=== PATIENT | male | born 1995 | race Caucasian/White ===

== ENCOUNTER 2021-07-09 11:10 | Emergency (ER) | payer BC, SELFPAY ==
[2021-07-09 11:17] VITALS: BP 142/74; PULSE 75; RESP 18; TEMP 36.5; O2SAT 100
--- NOTE | 2021-07-09 11:17 | ED.NAVMDI ---
HPI - Nausea/Vomiting/Diarrhea General Chief complaint: Nausea/Vomiting/Diarrhea Stated complaint: nausea Time Seen by Provider: 07/09/21 11:17 Source: patient, family and RN notes reviewed History of Present Illness HPI Narrative: Patient is a 25-year-old male who presents the urgent care with his spouse with complaints of nausea and vomiting. Patient states that 2 nights ago he started to have epigastric pain. Patient does state that he has a history of heartburn as well as esophageal spasms. Patient had a primary care visit yesterday and also found that he has some arrhythmia. Patient states that he is not having any chest pain and his PCP was not concerned however did refer him to a gis developer. Patient's PCP told him that if his epigastric symptoms do not improve that he will refer him to a dictating machine transcriber. Patient states that symptoms started more severe at 3 AM last night after eating tacos for dinner. Patient drinks a lot of carbonated water but states he did cut out soda. Patient has been taking Pepto without any improvements. Denies of any fevers, diarrhea or lower abdominal pains. No other acute complaints. No acute distress noted. Patient aware of the plan of care. Some parts of this dictation were generated by voice recognition software and may contain typographical and/or grammatical inaccuracies. Related Data Allergies Allergy/AdvReac Type Severity Reaction Status Date / Time amoxicillin Allergy Hives Verified 07/09/21 11:33 Review of Systems Review of Systems: CONSTITUTIONAL: Denies fever, chills, or sweats. EYES: Denies visual changes, redness, or discharge. ENT: Denies rhinorrhea, congestion, sore throat, or otalgia. CARDIOVASCULAR: Denies chest pain, palpitations, or edema. RESPIRATORY: Denies cough or dyspnea. GASTROINTESTINAL: Reports of epigastric pain, nausea and vomiting GENITOURINARY: Denies dysuria or hematuria. SKIN: Denies rash or itching. MUSCULOSKELETAL: Denies back pain, joint pain, or myalgia. NEUROLOGIC: Denies headache, numbness, or weakness. All other systems reviewed are negative, except as documented in HPI. PMFSH Comments At the time of my signature, I reviewed and agree with the nursing past medical, surgical, social, and family history. There is no relevant family history pertinent to the patient complaint. Exam Narrative: GENERAL: This is a well-nourished, well-developed patient, in no apparent distress. HEAD: normocephalic, atraumatic. EYES: PERRL. Sclera clear/white. Vision is grossly intact. EARS: External ears normal NOSE: External nose normal with no obvious nasal discharge, nares without redness, no rhinorrhea. THROAT: Mucous membranes moist NECK: Neck supple CARDIOVASCULAR: Regular rate and rhythm without murmurs, gallops, or rubs. RESPIRATORY: Clear to auscultation. Breath sounds equal bilaterally. No wheezes, rales, or rhonchi. GASTROINTESTINAL: Abdomen soft, epigastric tenderness, nondistended. Bowel sounds are active. No guarding. SKIN: warm, intact with no suspicious lesions or rash, good texture and turgor. NEURO: awake, alert, and oriented to person, place and time. There were no obvious focal neurologic abnormalities. EXTREMITIES: No clubbing, cyanosis, or edema. Course Course Level of Care: Express Care Visit Vital Signs Vital signs: Vital Signs Temperature 97.7 F 07/09/21 11:17 Pulse Rate 75 07/09/21 11:17 Respiratory Rate 18 07/09/21 11:17 Blood Pressure 142/74 H 07/09/21 11:17 Pulse Oximetry 100 07/09/21 11:17 Temperature 97.7 F 07/09/21 11:17 Pulse Rate 75 07/09/21 11:17 Respiratory Rate 18 07/09/21 11:17 Blood Pressure 142/74 H 07/09/21 11:17 Pulse Oximetry 100 07/09/21 11:17 Reviewed-patient is informed that they may have pre-hypertension or hypertension based on a blood pressure reading in the department. I recommend the patient call the primary care provider listed on their discharge instructions or a physician
[2021-07-09] MEDS: BELLADONNA ALK/PHENOB ELIX 10 ML, MAG HYDROX/ALUMINUM HYD/SIMETH 30 ML, LIDOCAINE HCL 2... PO (11:34)
== END 2021-07-09 11:55 | disposition home or self-care (01) ==
PROVIDERS: Emergency Provider Nurse Practitioner Family
DX: K21.9 Gastro-esophageal reflux disease without esophagitis (principal); Z86.16 Personal history of COVID-19
CPT/HCPCS: 99213; A9270; G0463

== ENCOUNTER 2022-02-10 08:30 | Emergency (ER) | payer BC, SELFPAY ==
[2022-02-10 08:36] VITALS: BP 131/64; PULSE 93; RESP 16; TEMP 37; O2SAT 99
--- NOTE | 2022-02-10 08:41 | ED.URI ---
HPI - URI/Sore Throat General Chief Complaint: Upper Respiratory Infection Stated Complaint: sore throat headache fever Time Seen by Provider: 02/10/22 09:08 Source: patient, RN notes reviewed and old records reviewed Mode of arrival: ambulatory Limitations: no limitations History of Present Illness HPI Narrative: 26-year-old male presents to the [facility] with 2 days body aches, headache sore throat. Reports of fever as high as 101. Has not taken anything for symptoms Related Data Allergies Allergy/AdvReac Type Severity Reaction Status Date / Time amoxicillin Allergy Hives Verified 07/09/21 11:33 Review of Systems Review of Systems: All systems reviewed & are unremarkable except as noted in HPI and below Constitutional: Constitutional: Reports as per HPI, Reports body ache(s), Reports chills, Reports fatigue, Reports fever(s) and Denies headache(s) Eyes: Eyes: Reports no additional eye complaints ENT: Reports as per HPI, Reports headache(s) and Reports sore throat Cardiovascular: Cardiovascular: Reports no additional cardiovascular complaints, Denies chest pain and Denies dyspnea Respiratory: Respiratory: Reports no additional respiratory complaints and Denies dyspnea Gastrointestinal: Gastrointestinal: Reports no additional gastrointestinal complaints and Denies abdominal pain Musculoskeletal: Musculoskeletal: Reports no additional musculoskeletal complaints Integumentary/Breasts: Skin/Breast: Reports system reviewed and no additional complaints, except as docu Neurologic: Reports system reviewed and no additional complaints, except as documented and Denies headache(s) Psychiatric: Psychiatric: Reports no additional psychiatric complaints Allergic/Immunologic: Allergic/Immunologic: Reports no additional allergic/immunologic complaints PMFSH Past Medical History Medical History (Updated 02/10/22 @ 09:19 by Natalia Valdovinos APRN) Patient denies medical problems Surgical History Surgical History (Updated 02/10/22 @ 09:18 by Natalia Valdovinos APRN) No pertinent past surgical history Social History Social History (Updated 02/10/22 @ 09:18 by Natalia Valdovinos APRN) Gender identity (if verbalized by the patient): Male Comments At the time of my signature, I reviewed and agree with the nursing past medical, surgical, social, and family history. There is no relevant family history pertinent to the patient complaint. Exam Const: General: cooperative, healthy appearing, comfortable, no acute distress, well developed, alert and well nourished Nutritional Appearance: well nourished Orientation/consciousness: patient oriented x3 Limitations: no limitations HENMT: Head: normal to inspection Ears: external ears normal Face/Nose/Sinus: Normal external nose present, Normal nares present, Normal nasal mucous membranes and turbinates present and normal facial exam Face and sinus: normal facial exam Mouth: Yes Normal oral and palatal mucosa present, Yes lip normal and Yes moist mucous membranes abnormal Throat: uvula midline, abnormal tonsil bilateral erythema, exudates and hypertrophy 2+ and posterior oropharynx abnormal erythema; no edema Eyes: General: appearance normal, both eyes and all related structures Alignment and Position: alignment normal Conjunctivae: conjunctivae normal Pupils: Equal, round and reactive pupils present Neck: Neck: normal visual inspection, full ROM, no lymphadenopathy and no meningeal signs Chest: Chest palpation & inspection: normal inspection of the chest Resp: Effort & Inspection: normal respiratory effort and no use of accessory muscles Auscultation: clear to auscultation bilaterally, no crackles, no rales, no rhonchi and no wheezes Cardio: Rate: regular rate Rhythm: regular rhythm Back/Spine/Pelvis: Cervical Spine: cervical ROM normal and No Cervical spine tenderness Thoracic/Lumbar Spine: thoracic and lumbar spine normal to inspection and thoraco-lumbar ROM normal Skin:
== END 2022-02-10 09:20 | disposition home or self-care (01) ==
PROVIDERS: Emergency Provider Nurse Practitioner; PCP Hospitalist
DX: J03.90 Acute tonsillitis, unspecified (principal)
CPT/HCPCS: 87081; 87147; 87804; 99213; G0463

== ENCOUNTER 2024-03-01 18:27 | Emergency (ER) | payer BC, SELFPAY ==
[2024-03-01 18:38] VITALS: BP 142/82; PULSE 83; RESP 15; TEMP 37; O2SAT 98
--- NOTE | 2024-03-01 19:54 | ED_ITS ---
HPI - General Adult General Chief complaint: Nausea/Vomiting/Diarrhea Stated complaint: Nausea Source: patient Mode of arrival: ambulatory Limitations: no limitations History of Present Illness HPI narrative: Patient presents requesting a note to allow him to return to work. He missed work yesterday due to nausea. That has since resolved. No recent antibiotic use, new foods or sick contacts. No fever, chills, vomiting or diarrhea. He has no acute symptoms or concerns at the present time. Related Data Home Medications ?Medication ?Instructions ?Recorded ?Confirmed ?Last Taken ?Type No Home Medications 03/01/24 03/01/24 Unknown History Allergies Allergy/AdvReac Type Severity Reaction Status Date / Time amoxicillin Allergy Hives Verified 03/01/24 18:35 Review of Systems Review of Systems: CONSTITUTIONAL: Denies fever, chills, or sweats. EYES: Denies visual changes, redness, or discharge. ENT: Denies rhinorrhea, congestion, sore throat, or otalgia. CARDIOVASCULAR: Denies chest pain, palpitations, or edema. RESPIRATORY: Denies cough or dyspnea. GASTROINTESTINAL: Reports recent nausea, now resolved. Denies abdominal pain, vomiting, or diarrhea. GENITOURINARY: Denies dysuria or hematuria. SKIN: Denies rash or itching. MUSCULOSKELETAL: Denies back pain, joint pain, or myalgia. NEUROLOGIC: Denies headache, numbness, dizziness, or weakness. PSYCHIATRIC: Denies anxiety or depression. [facility] Past Medical History Medical History Patient denies medical problems Surgical History Surgical History No pertinent past surgical history Social History Social History Substance use: never Gender identity (if verbalized by the patient): Male Exam Narrative: GENERAL: Well-appearing, well-nourished, and in no acute distress. HEAD: Normocephalic, atraumatic. EYES: PERRLA and EOMI. ENT: Nares clear, no rhinorrhea or epistaxis. Mucous membranes moist. Oropharynx without tonsillar hypertrophy exudate or other lesions. Bilateral TMs pearly hoffman nonbulging NECK: Supple. No adenopathy or masses. No carotid bruits or JVD CHEST: Clear to auscultation. No respiratory distress. No wheezes rales or rhonchi HEART: Regular rate and rhythm. No murmur heard. Normal peripheral pulses. ABDOMEN: Soft, nontender, nondistended, normal active bowel sounds. EXTREMITIES: Normal range of motion. No edema. SKIN: Warm, dry, no rash. NEURO: No focal deficits. Alert and oriented x3. PSYCH: Normal mood and affect. Course Course Emergency Course: This is a 28-year-old male who presented requesting a note to allow him to return to work. This is reasonable request. He has no acute medical concerns. Follow-up with primary provider. Patient in agreement plan of care. Level of Care: Express Care Visit Vital Signs Vital signs: Vital Signs Temperature 37.0 C 03/01/24 18:38 Pulse Rate 83 03/01/24 18:38 Respiratory Rate 15 03/01/24 18:38 Blood Pressure 142/82 H 03/01/24 18:38 Pulse Oximetry 98 03/01/24 18:38 Oxygen Delivery Room Air 03/01/24 18:38 Temperature 37.0 C 03/01/24 18:38 Pulse Rate 83 03/01/24 18:38 Respiratory Rate 15 03/01/24 18:38 Blood Pressure 142/82 H 03/01/24 18:38 Pulse Oximetry 98 03/01/24 18:38 Oxygen Delivery Room Air 03/01/24 18:38 Medical Decision Making Vital Signs Vital Signs: Vital Signs Temperature 37.0 C 03/01/24 18:38 Pulse Rate 83 03/01/24 18:38 Respiratory Rate 15 03/01/24 18:38 Blood Pressure 142/82 H 03/01/24 18:38 Pulse Oximetry 98 03/01/24 18:38 Oxygen Delivery Room Air 03/01/24 18:38 Temperature 37.0 C 03/01/24 18:38 Pulse Rate 83 03/01/24 18:38 Respiratory Rate 15 03/01/24 18:38 Blood Pressure 142/82 H 03/01/24 18:38 Pulse Oximetry 98 03/01/24 18:38 Oxygen Delivery Room Air 03/01/24 18:38 Discharge Plan Discharge Clinical Impression: Encounter to obtain excuse from work, Nausea Patient Disposition: Home, Self-Care Condition: Stable Instructions: Antibiotic Form, Acute Nausea and Vomiting (DC) Patient Language: Gambian Prescriptions: No Action No Home Medications Follow-up/Referrals: Kelsey,MD Hans [Primary Care Provider] - Stand Alone Forms: Work/School Release IP Time of Disposition: 19:36
== END 2024-03-01 19:43 | disposition home or self-care (01) ==
PROVIDERS: Emergency Provider Nurse Practitioner; PCP Hospitalist
DX: R11.0 Nausea (principal); Z02.79 Encounter for issue of other medical certificate
CPT/HCPCS: 99211; G0463